=== PATIENT | female | born 1980 | race Caucasian/White ===

== ENCOUNTER → 2021-05-28 08:29 | Outpatient (CLI) | payer OTHER, SELFPAY ==
--- NOTE | ~2021-05-28 | MMUS_ITS ---
EXAMINATION: MM diagnostic tucker BI w isabel, US breast LT limited HISTORY: Palpable lump of the lower inner left breast TECHNIQUE: Craniocaudal, mediolateral, and mediolateral oblique 3-D tomosynthesis images of the breas ts were performed and synthetic 2-D images were generated. CAD analysis was submitted and interpreted . High resolution limited left breast ultrasound was performed. COMPARISON: 06/21/2019, 01/21/2017 BREAST PARENCHYMAL COMPOSITION: The breasts are heterogeneously dense, which may obscure small masses . FINDINGS: MAMMOGRAPHIC FINDINGS: There is no evidence of suspicious mass, calcification, or architectural distortion in either breast to suggest malignancy. There has been no suspicious interval change. No mammographic correlate is chuck ntified for the reported palpable abnormality of the left breast. ULTRASOUND: There is no evidence of focal abnormal solid or cystic mass in the vicinity of the reported palpable abnormality of concern IMPRESSION: 1. No specific mammographic or sonographic correlate is identified for the reported palpable abnormal ity of concern in the left breast Further evaluation at this time should be based on clinical assessm ent. Continued follow-up physical examination is recommended. 2. Recommend routine screening mammography in one year. BI-RADS Category 1: Negative Reviewed, dictated and finalized at location A. 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 No specific mammographic or sonographic correlate is identified for the repo rted palpable abnormality of concern in the left breast Further evaluation at t his time should be based on clinical assessment. Continued follow-up physical e xamination is recommended. 2. Recommend routine screening mammography in one year. BI-RADS Category 1: Negative
== END ==
PROVIDERS: PCP Family Medicine; Visit Provider Family Medicine
DX: R92.8 Other abnormal and inconclusive findings on diagnostic imaging of breast (principal); N63.0 Unspecified lump in unspecified breast
CPT/HCPCS: 76642; 77062; 77066; G0279

== ENCOUNTER → 2023-01-31 13:04 | Outpatient (CLI) | payer BC, SELFPAY ==
--- NOTE | ~2023-01-31 | MM_ITS ---
EXAMINATION: MM screening tucker BI w isabel HISTORY: Screening TECHNIQUE: Craniocaudal and mediolateral oblique 3-D tomosynthesis images were obtained and synthetic 2-D images were generated. CAD analysis was submitted and interpreted. COMPARISON: Comparison to multiple prior studies sequentially, with oldest reviewed study dated 11/2019. BREAST PARENCHYMAL COMPOSITION: The breasts are heterogeneously dense, which may obscure small masses FINDINGS: There is a new focal asymmetry in the upper outer quadrant of the right breast in the centr al aspect of the left breast on CC view. There are no suspicious calcifications or architectural dist ortion. IMPRESSION: 1. New bilateral breast asymmetries. 2. Additional mammographic views and possible breast ultrasound are recommended. BI-RADS Category 0: Incomplete: Needs additional imaging evaluation. Reviewed, dictated and finalized at location A. IMPRESSION: 1. New bilateral breast asymmetries. 2. Additional mammographic views and possible breast ultrasound are recommended . BI-RADS Category 0: Incomplete: Needs additional imaging evaluation.
== END ==
PROVIDERS: PCP Physician Assistant; Visit Provider Nurse Practitioner
DX: Z12.31 Encounter for screening mammogram for malignant neoplasm of breast (principal); R92.8 Other abnormal and inconclusive findings on diagnostic imaging of breast
CPT/HCPCS: 77063; 77067

== ENCOUNTER 2023-03-06 09:35 | Outpatient (CLI) | payer BC, SELFPAY ==
--- NOTE | ~2023-03-06 | MMUS_ITS ---
EXAMINATION: MM diagnostic tucker BI w isabel, US breast BI complete HISTORY: Follow-up bilateral breast asymmetries TECHNIQUE: Additional 3-D tomosynthesis images of the breasts were performed and synthetic 2-D images were generated. CAD analysis was submitted and interpreted. High resolution complete bilateral breas t ultrasound was performed. COMPARISON: Comparison to multiple prior studies sequentially, with oldest reviewed study dated 11/2019. BREAST PARENCHYMAL COMPOSITION: The breasts are extremely dense, which lowers the sensitivity of mammography FINDINGS: MAMMOGRAPHIC FINDINGS: Bilateral breast asymmetries compress with spot views and are not demonstrated on mediolateral views. No suspicious masses, calcifications or architectural distortion are identified. ULTRASOUND: Complete bilateral US of all 4 quadrants of the breasts and retroareolar region was reviewed. Right breast: At 12:00, 1 cm from the nipple there is a 5 mm complicated cyst. At 2:00, 1 cm from the nipple there is an irregular shaped hypoechoic mass with parallel orientation, no posterior features and marginal vascularity measuring 10 x 8 x 5 mm. At 3:00, 5 cm from the nipple there is a 3 mm cyst . At 10:00, 7 cm from the nipple, there is a minimally complicated 8 mm cyst. There are the areola th ere is a 4 mm cyst. Left breast: At 4:00, 4 cm from the nipple there is a 4 mm cyst. There are the areola there is an ova l hypoechoic mass measuring 4 mm with parallel orientation, posterior acoustic enhancement and no int ernal vascularity, likely a benign complicated cyst or cluster of microcysts. Six-month follow-up Bennett ited left breast ultrasound recommended. IMPRESSION: 1. Irregular shaped 1 cm right breast mass at 2:00, 1 cm from the nipple. Ultrasound-guided right levy ast biopsy recommended. BI-RADS Category 4. 2. Probable benign 4 mm mass of the left breast near the areola. 6 month follow-up Limited left breas t ultrasound recommended. BI-RADS Category 3. Reviewed, dictated and finalized at location A. IMPRESSION: 1. Irregular shaped 1 cm right breast mass at 2:00, 1 cm from the nipple. Ultra sound-guided right breast biopsy recommended. BI-RADS Category 4. 2. Probable benign 4 mm mass of the left breast near the areola. 6 month follow -up Limited left breast ultrasound recommended. BI-RADS Category 3.
== END 2023-03-06 09:36 ==
LOC: MICIMG 09:36
PROVIDERS: PCP Nurse Practitioner; Visit Provider Physician Assistant
DX: R92.8 Other abnormal and inconclusive findings on diagnostic imaging of breast (principal)
CPT/HCPCS: 76641; 77062; 77066; G0279

== ENCOUNTER 2023-04-28 13:48 | Outpatient (CLI) | payer BC, SELFPAY ==
--- NOTE | ~2023-04-28 | MR_ITS ---
EXAMINATION: MR brain/brain stem wo/w con DATE: 04/28/2023 14:33 INDICATION: New daily persistent headaches. TECHNIQUE: Magnetic resonance imaging (MRI) of the brain and brainstem was performed without and with 12 mL MultiHance intravenous contrast. COMPARISON: None. FINDINGS: There are 2 foci of increased T2-weighted signal intensity in the cerebral white matter, wh ich is normal for the patient's age. There is no intracranial hemorrhage, acute infarction, or abnorm al intracranial mass lesion. The ventricles are normal in size. The paranasal sinuses are clear. The orbits are normal. The mastoid air cells are normal. IMPRESSION: 1. Normal brain. Reviewed, dictated and finalized at location A. ING ATTENDANT IMPRESSION: 1. Normal brain.
== END 2023-04-28 13:49 ==
LOC: MICIMG 13:49
PROVIDERS: PCP Physician Assistant; Visit Provider Physician Assistant
DX: G44.52 New daily persistent headache (NDPH) (principal)
CPT/HCPCS: 70553; A9577

== ENCOUNTER 2023-07-31 11:08 | Emergency (ER) | payer OTHER, BC, SELFPAY ==
[2023-07-31] VITALS (16 sets, daily range): BP systolic 102–118; BP diastolic 51–68; PULSE 70–98; RESP 12–20; TEMP 36.6; O2SAT 97–100
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
--- NOTE | ~2023-07-31 | CT_ITS ---
Noncontrast CT scan of the cervical spine Technique: Multiple contiguous axial [address] images of the cervical spine were obtained and rec onstructed in 2D sagittal and coronal planes on the acquisition scanner. Dose reduction technique was used on this scan by utilizing automated exposure control, adjustment of the mA and/or kV according to patient size. The dose-length product (DLP) was 149.58 mGy-cm. Clinical History: Pain Findings: No fractures or dislocations. Unremarkable visualized bony structures. The intervertebral disc spaces are preserved. No prevertebral soft tissue swelling. Impression: No fracture or subluxation of the cervical spine. Reviewed, dictated and finalized at location . FACTURING COST ESTIMATOR Impression: No fracture or subluxation of the cervical spine.
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
[2023-07-31] MEDS: ONDANSETRON INJ 4 MG/2 ML VIAL IV PUSH ×2 (12:55→16:42)
[2023-07-31] MEDS: MORPHINE SULFATE (*CRX) 4 MG/ML INJ IV PUSH ×2 (12:55→16:42)
[2023-07-31 13:02] LABS: Basophils Percent Auto 0.1 % (0.2-1.2); Hematocrit 37.2 % (37.0-47.0); Hemoglobin 12.4 g/dL (12.0-15.0); Immature Granulocyte Absolute 0.06 K/mm3 (0.00-0.031); Immature Granulocyte Percent A 0.4 % (0-0.5); Lymphocytes Percent Auto 6.7 % (18.3-44.2); Mean Corpuscular HGB Conc 33.3 g/dl (32-36); Mean Corpuscular Hemoglobin 31.1 pg (26-34); Mean Corpuscular Volume 93.2 fl (80-100); Mean Platelet Volume 9.4 fl (7.4-10.4); Monocytes Absolute Auto 0.6 K/mm3 (0.1-0.6); Monocytes Percent Auto 4.4 % (2.6-8.5); Neutrophils Absolute Auto 11.9 K/mm3 (1.3-6.7); Neutrophils Percent Auto 88.4 % (45.5-73.1); Platelet Count Result 215 k/mm3 (150-375); Red Blood Count 3.99 M/mm3 (4.2-5.4); White Blood Count 13.4 K/mm3 (4.5-10.0)
[2023-07-31 13:12] LABS: SPREG INTERNAL CONTROL Positive; Serum Qual hCG Negative
[2023-07-31 13:16] LABS: Alanine Aminotransferase 21 U/L (6-35); Albumin Level 4.4 g/dL (3.5-5.1); Alkaline Phosphatase 50 U/L (38-126); Anion Gap 7 mmol/L (8-16); Aspartate Amino Transferase 39 U/L (14-36); Bilirubin,Total 0.9 mg/dL (0.2-1.3); Blood Urea Nitrogen 13 mg/dL (7-17); Calcium 9.2 mg/dL (8.4-10.2); Carbon Dioxide 25 mmol/L (22-30); Chloride 107 mmol/L (98-107); Estimated CRCL calculation 98 ml/min; Estimated Glomerular Filt Rate > 60; Glucose 134 mg/dL (65-110); Potassium 3.4 mmol/L (3.4-5.0); Sodium 139 mmol/L (137-145)
[2023-07-31] MEDS: SODIUM CHLORIDE 0.9% IV 1,000 ML 150 ML IV CONT (14:08)
--- NOTE | 2023-07-31 15:46 | PC.NURSE ---
Attempted NG tube X2 with no success. patient did not tolerate procedure and refused to try again. Provider aware.
--- NOTE | 2023-07-31 15:55 | PC.NURSE ---
[facility] E[facility] 2hrs [facility] - Declined [facility] - Declined [facility] - Accepted ETA 45min Trip # [phone]
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
== END 2023-07-31 16:58 | disposition short-term general hospital (02) ==
PROVIDERS: Emergency Provider Emergency Medicine; PCP Physician Assistant
DX: S09.90XA Unspecified injury of head, initial encounter (principal); S39.91XA Unspecified injury of abdomen, initial encounter; S36.400A Unspecified injury of duodenum, initial encounter; D72.829 Elevated white blood cell count, unspecified; Z90.49 Acquired absence of other specified parts of digestive tract; Z90.710 Acquired absence of both cervix and uterus; K76.9 Liver disease, unspecified; N28.1 Cyst of kidney, acquired; V48.5XXA Car driver injured in noncollision transport accident in traffic accident, initial encounter
CPT/HCPCS: 36415; 70450; 71260; 72125; 73630; 74177; 80053; 84703; 85025; 96361; 96374; 96375; 96376; 99285; J2270; J2405; J7030; L0140; Q9967